=== PATIENT | female | born 1945 | race Caucasian/White ===

== ENCOUNTER 2019-09-27 12:07 | Outpatient (CLI) | payer MEDICARE, OTHER, SELFPAY ==
--- NOTE | 2019-09-27 12:14 | USCV_ITS ---
Carl Avalos Age: 73 Gender: F : 1945 Exam Date: 09/27/2019 12:20 Ordering Phys: Mio Henry MD Technologist: Judy Byrnes [place] [facility] [place]: BRUIT Risk Factors: Previous Vascular Surgery: Right Brachial BP: / Left Brachial BP: / Right Left Velocity (cm/s) Spectral Plaque Velocity (cm/s) Spectral Plaque Syst/Diast Broadening Syst/Diast Broadening 92.60/ 27.60 Prox CCA 74.30 / 23.30 79.40/ 19.80 Mid CCA 53.20 / 16.80 63.90/ 23.20 Distal CCA 43.40 / 13.80 71.60/ 26.90 Prox ICA 64.10 / 27.20 66.30/ 27.80 Mid ICA 86.90 / 35.80 69.80/ 22.40 Distal ICA 91.00 / 38.90 106.60 ECA 63.20 0.90 ICA/CCA 1.71 Antegrade Vertebral Antegrade 57.30/ 17.00 cm/s 52.20/ 15.30 cm/s Tri Subclavian Tri 77.00 66.50 FINDINGS Minimal plaques at the right bifurcation and internal carotid artery Moderate heterogeneous plaques at the left bifurcation and internal carotid artery intimal thickening in the common carotid arteries bilaterally Antegrade flow in the vertebral arteries bilaterally Normal Doppler flow velocities in the external and subclavian arteries bilaterally CONCLUSIONS Moderate heterogeneous plaques at the left bifurcation and internal carotid artery with velocity elevation consistent with 16-49% stenosis. Minimal plaques at the right bifurcation and internal carotid artery Intimal thickening in the common carotid arteries bilaterally. Dr Alayna Boyd MD [facility] (Electronically Signed) Final Date: 28 September 2019 09:23 S
== END 2019-09-27 12:08 | disposition home or self-care (01) ==
LOC: RAD 12:08
PROVIDERS: PCP Family Medicine; Visit Provider Family Medicine
DX: R09.89 Other specified symptoms and signs involving the circulatory and respiratory systems (principal)
CPT/HCPCS: 93880

== ENCOUNTER 2019-10-04 11:49 | Outpatient (CLI) | payer MEDICARE, OTHER, SELFPAY ==
--- NOTE | 2019-10-04 11:59 | MM_ITS ---
WS: [id number] BILATERAL DIGITAL SCREENING MAMMOGRAPHY WITH CAD CLINICAL INFORMATION: SCREENING HISTORY: Screening mammogram. No current complaints. COMPARISON: None. TECHNIQUE: Bilateral CC and MLO views. FINDINGS: The breasts are composed of heterogeneous fibroglandular density tissue, which can limit the detectio n of small underlying mass lesions. No suspicious mass, asymmetry, calcifications, or architectural d istortion. No evidence of malignancy. Punctate calcifications. Lucent centered calcifications. MM/[place] [id number] IMPRESSION: BI-RADS: 2-Benign FOLLOW UP: 1 Year Follow-up Recommend return to annual screening mammography.
== END 2019-10-04 11:50 | disposition home or self-care (01) ==
LOC: RADSHAW 11:58
PROVIDERS: PCP Family Medicine; Visit Provider Family Medicine
DX: Z12.31 Encounter for screening mammogram for malignant neoplasm of breast (principal)
CPT/HCPCS: 77067

== ENCOUNTER 2019-10-11 11:09 | Emergency (ER) | payer OTHER, SELFPAY ==
[2019-10-11 11:16] VITALS: BP 197/98; PULSE 75; RESP 18; TEMP 36.8; O2SAT 97; BMI 25.0
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
[2019-10-11 12:34] VITALS: BP 210/105; PULSE 70; RESP 16
--- NOTE | 2019-10-11 12:38 | PC.NURSE ---
1228 while at bedside pt states, i don't want the scan because my bp is so high . I then asked if she would rather have a chest xray and she confirmed that she would.
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
--- NOTE | 2019-10-11 12:50 | PC.NURSE ---
1245 informed MARCY Becerril of pt requesting xray instead of chest ct and that pt bp was 210/105. Jerrica verbalized understanding and stated that she would order a cxr.
[2019-10-11 13:46] VITALS: BP 160/98; PULSE 68; RESP 14; O2SAT 100
== END 2019-10-11 13:48 | disposition home or self-care (01) ==
PROVIDERS: Emergency Provider Physician Assistant; PCP Family Medicine
DX: S20.212A Contusion of left front wall of thorax, initial encounter (principal); V89.2XXA Person injured in unspecified motor-vehicle accident, traffic, initial encounter
CPT/HCPCS: 12345; 71045; 71046; 99282; 99283

== ENCOUNTER → 2019-11-09 13:20 | Outpatient (BNVA) | payer SELFPAY | PROVIDERS: PCP Family Medicine; Referring Provider Dermatology; Visit Provider Dermatology | DX: D23.30 Other benign neoplasm of skin of unspecified part of face (principal); L71.9 Rosacea, unspecified | CPT/HCPCS: 99203 ==

== ENCOUNTER → 2021-05-04 17:38 | Outpatient (BNVA) | payer MEDICARE, OTHER, SELFPAY | PROVIDERS: PCP Family Medicine; Visit Provider Nurse Practitioner | DX: Z20.822 Contact with and (suspected) exposure to COVID-19 (principal) | CPT/HCPCS: 87635 ==

== ENCOUNTER 2021-05-08 13:54 | Outpatient (CLI) | payer MEDICARE, OTHER, SELFPAY ==
--- NOTE | 2021-05-08 14:11 | USCV_ITS ---
Robbie Loireerebecca Age: 75 Gender: F : 1945 Exam Date: 05/08/2021 14:44 Ordering Phys: Bladimir Meneses M.D ([email or web address]) Technologist: CHINEDU Exam Location: [facility] – [place] Indication: Left Carotid Bruit Risk Factors: Previous Vascular Surgery: Right Brachial BP: / Left Brachial BP: / Right Left Velocity (cm/s) Spectral Plaque Velocity (cm/s) Spectral Plaque Syst/Diast Broadening Syst/Diast Broadening 63.90/ 15.40 Prox CCA 82.00 / 19.70 59.50/ 14.30 Mid CCA 73.50 / 19.70 81.60/ 19.80 Distal CCA 80.30 / 23.90 90.70/ 26.30 Prox ICA 100.30/ 38.60 107.80/38.10 Mid ICA 118.00/ 39.70 107.80/31.60 Distal ICA 98.10 / 37.50 140.70 ECA 91.40 1.32 ICA/CCA 1.44 Antegrade Vertebral Antegrade 58.20/ 11.20 cm/s 53.20/ 15.10 cm/s Tri Subclavian Tri 91.40 126.2 0 CONCLUSIONS Right ICA stenosis <50% at the upper end of the range. Mild atheromatous plaque right carotid bulb/ICA. Left ICA stenosis <50% at the upper end of the range. Moderate atheromatous plaque left carotid bulb/ICA. Normal antegrade Doppler flow noted in the right vertebral artery. Normal antegrade Doppler flow noted in the left vertebral artery. Etienne Galvez MD (Electronically Signed) Final Date: 10 May 2021 09:21 S
== END 2021-05-08 13:55 | disposition home or self-care (01) ==
LOC: RAD 13:57
PROVIDERS: PCP Family Medicine; Visit Provider Internal Medicine
DX: R09.89 Other specified symptoms and signs involving the circulatory and respiratory systems (principal); I65.23 Occlusion and stenosis of bilateral carotid arteries
CPT/HCPCS: 93880

== ENCOUNTER → 2021-07-19 09:51 | Outpatient (BNVA) | payer MEDICARE, OTHER, SELFPAY | PROVIDERS: PCP Family Medicine; Visit Provider Nurse Practitioner Family | DX: I11.0 Hypertensive heart disease with heart failure (principal); I50.30 Unspecified diastolic (congestive) heart failure; Z13.220 Encounter for screening for lipoid disorders; Z79.82 Long term (current) use of aspirin | CPT/HCPCS: 36415; 80053; 80061; 85025; 85610; 93005; 99214 ==

== ENCOUNTER 2021-10-29 19:43 | Emergency (ER) | payer MEDICARE, OTHER, SELFPAY ==
[2021-10-29 19:57] VITALS: BP 224/106; PULSE 93; RESP 17; TEMP 36.6; O2SAT 96; BMI 27.3
[2021-10-29 20:07] VITALS: RESP 16; TEMP 36.4; O2SAT 97
--- NOTE | 2021-10-29 20:28 | XRR_ITS ---
PROCEDURE INFORMATION: Exam: XR Chest Exam date and time: 10/29/2021 8:44 PM Age: 76 years old Clinical indication: Other: High BP; Additional info: HTN TECHNIQUE: Imaging protocol: Radiologic exam of the chest. Views: 1 view. COMPARISON: CR XR chest 1V portable [id number] 10/11/2019 1:04 PM FINDINGS: Lungs: The lung bases are suboptimally assessed due to technique however the upper lungs are clear of focal consolidation. Pleural spaces: Unremarkable. No pleural effusion. No pneumothorax. Heart/Mediastinum: Cardiac silhouette appears slightly prominent and probably magnified by technique but has slightly decreased in size. No obvious vascular congestion. Bones/joints: No acute osseous findings. Other findings: Single view was submitted. XR/XR chest 1V portable [id number] IMPRESSION: No acute findings. Suboptimal lung base assessment. Followup including lateral view may be obtained if clinically indicated.
--- NOTE | 2021-10-29 20:28 | ECG_ITS ---
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 Measurements Intervals Herman Rate: 82 P: 47 OR: 172 QRS: 18 QRSD: 98 T: 35 QT: 359 QTc: 422 Interpretive Statements SINUS RHYTHM LEFT ATRIAL ENLARGEMENT [-0.15mV P-WAVE IN V1/V2] No previous ECG available for comparison Electronically Signed On 10-30-2021 12:09:19 CDT by Sophie Solomon M.D. [email or web address] medical [email or web address] [email or web address]/[id number] f
[2021-10-29 20:43] LABS: Basophils # 0.1 10^3/uL (0.0-0.1); Basophils % 0.6 %; Eosinophils # 0.2 10^3/uL (0.0-0.8); Eosinophils % 2.3 %; Hematocrit 41.5 % (37.0-47.0); Hemoglobin 13.7 g/dL (11.5-15.3); Lymphocytes # 1.9 10^3/uL (0.8-4.8); Lymphocytes % 23.4 %; Mean Corpuscular Hemoglobin 30.1 pg (28.0-34.0); Mean Corpuscular Volume 91.2 fl (81-99); Mean Platelet Volume 9.8 fL (7.4-10.4); Monocytes # 0.6 10^3/uL (0.2-0.9); Monocytes % 7.3 %; Neutrophils # 5.45 10^3/uL (1.8-7.7); Neutrophils % 66.2 %; Nucleated Red Blood Cells % 0 %; Platelet Count 285 10^3/cmm (130-400); Red Blood Count 4.55 10^6/uL (4.1-5.3); White Blood Count 8.2 10^3/uL (4.0-10.0)
--- NOTE | 2021-10-29 20:43 | ED_ITS ---
HPI - General Adult General: Chief complaint: General Medical Stated complaint: High BP Time Seen by Provider: 10/29/21 20:28 History of Present Illness: 76-year-old female comes in today with complaints of elevated blood pressure. Patient feels like she cannot live like this due to her blood pressure being so high. Patient states that she is worried about having a stroke. 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 Patient has a history of hypertension with diastolic congestive heart failure. Patient at this time is taking clonidine, carvedilol, and losartan for her blood pressure. Patient was also prescribed hydrochlorothiazide but does not like to take it. Patient also was prescribed amlodipine but states that she has too many side effects from the medication. By what I can discern patient does not take these 2 medicines. Patient has a barrier to communication due to Romansh being her second language. Associated symptoms: Deny chest pain, dyspnea, nausea or vomiting Review of Systems General: Reports: 10 or more systems reviewed and unremarkable except in HPI and below Card: Denies: chest pain Resp: Denies: dyspnea GI: Denies: nausea or vomiting PFSH ED 2 PFSH: Medical History (Updated 10/29/21 @ 21:56 by VINICIUS May) Accelerated hypertension with diastolic congestive heart failure, NYHA class 3 Back skin lesion History of malignant melanoma HTN (hypertension) Left carotid bruit Murmur Surgical History H/O: hysterectomy History of appendectomy History of appendectomy History of hysterectomy Hx of tonsillectomy Family History Mother Stroke Social History Smoking and tobacco status: never smoked Alcohol intake: current Alcohol intake frequency: holidays/special occasions only Physical Exam Const: COMMON NORMALS: alert HENMT: COMMON NORMALS: normocephalic HEAD & SCALP: normocephalic Neck/C-Spine: COMMON NORMALS: full ROM Resp: COMMON NORMALS: normal respiratory effort and clear to auscultation bilaterally AUSCULTATION: clear to auscultation bilaterally Cardio: COMMON NORMALS: regular rate, regular rhythm, S1 normal heart sound present and S2 normal heart sound present RATE: regular rate RHYTHM: regular rhythm HEART SOUNDS: S1 normal heart sound present and S2 normal heart sound present Extremity: COMMON NORMALS: normal to inspection and no pedal edema Neuro: SENSORIUM/ORIENTATION: Yes alert Skin: COMMON NORMALS: no rashes or lesions noted GENERAL SKIN EXAM: no rashes or lesions noted Course Vital Signs: Vital signs: Vital Signs Temperature 97.6 F 10/29/21 22:00 Pulse Rate 62 10/29/21 22:00 Respiratory Rate 16 10/29/21 21:30 Blood Pressure 148/87 10/29/21 22:00 Pulse Oximetry 97 10/29/21 22:00 MDM - General Adult Medical Decision Making 76-year-old female comes in today for complaints of elevated blood pressure. On exam patient denies any chest pain or shortness of breath. Patient is just concerned about her blood pressure being so high and not being able to carry out her normal activities. On exam respirations are even lungs are clear to auscultation. Vital signs note a blood pressure of 224 systolic. Differential diagnosis includes CHF, uncontrolled hypertension, anxiety. Patient was monitored and her blood pressure came down to 148/87 without any medication intervention. Patient believes that her losartan is not working and would like to different medication. We will switch patient from losartan to valsartan 160 mg twice a day. This does have some better data regarding CHF and may be able to provide better control for her blood pressure. Patient was prescribed amlodipine and hydrochlorothiazide which she does not take. Patient does take carvedilol along with her losartan as scheduled. Laboratory values noted no abnormality with a CBC and CMP. Troponin was at baseline 10. EKG showed no ST elevation. BNP was 451. Chest x-ray had no fluid and patient had no swelling in the lower extremities. Feel the patient probably has just some uncontrolled blood pressure this may be related to the loss of her spouse and the anxiety as she has had since his demise. Another thought might be poor medication compliance. We will go ahead and start the valsartan 160 twice a day with explanation to hold the losartan. Patient reported understanding. Patient will continue with carvedilol and clonidine otherwise as needed. I recommended follow-up with primary care in 1 week. Lab Data : 10/29/21 20:37 10/29/21 20:37 Radiology Impressions Chest X-Ray 10/29/21 20:28 IMPRESSION: No acute findings. Suboptimal lung base assessment. Followup including lateral view may be obtained if clinically indicated. Laboratory Results WBC 8.2 10^3/uL (4.0-10.0) 10/29/21 20: RBC 4.55 10^6/uL (4.1-5.3) 10/29/21 20:37 Hgb 13.7 g/dL (11.5-15.3) 10/29/21 20: Hct 41.5 % (37.0-47.0) 10/29/21 20: MCV 91.2 fl (81-99) 10/29/21 20: MCH 30.1 pg (28.0-34.0) 10/29/21 20: MCHC 33.0 g/dL (30.0-36.0) 10/29/21 20: RDW 12.0 % (12.1-15.1) L 10/29/21 20:37 Plt Count 285 10^3/cmm (130-400) 10/29/21 20:37 MPV 9.8 fL (7.4-10.4) 10/29/21 20:37 Neut % (Auto) 66.2 % 10/29/21 20:37 Lymph % (Auto) 23.4 % 10/29/21 20:37 Davidson % (Auto) 7.3 % 10/29/21 20:37 Eos % (Auto) 2.3 % 10/29/21 20:37 Baso % (Auto) 0.6 % 10/29/21 20:37 Neut # (Auto) 5.45 10^3/uL (1.8-7.7) 10/29/21 20:37 Lymph # (Auto) 1.9 10^3/uL (0.8-4.8) 10/29/21 20:37 Davidson # (Auto) 0.6 10^3/uL (0.2-0.9) 10/29/21 20:37 Eos # (Auto) 0.2 10^3/uL (0.0-0.8) 10/29/21 20:37 Baso # (Auto) 0.1 10^3/uL (0.0-0.1) 10/29/21 20:37 Nucleated RBC % (auto) 0 % 10/29/21 20:37 Nucleated RBCs # 0.0 /100WBC 10/29/21 20:37 Sodium 141 mmol/L (136-145) 10/29/21 20:37 Potassium 4.2 mmol/L (3.5-5.1) 10/29/21 20:37 Chloride 105 mmol/L (98-107) 10/29/21 20:37 Carbon Dioxide 24 mmol/L (22-29) 10/29/21 20:37 Anion Gap 16.2 (5-19) 10/29/21 20:37 BUN 13 mg/dL (8-23) 10/29/21 20:37 Creatinine 0.6 mg/dL (0.5-0.9) 10/29/21 20:37 GFR Calculation Not Reportable 10/29/21 20:37 Glucose 94 mg/dL (65-115) 10/29/21 20:37 Calculated Osmolality 292 mOsm/kg (285-295) 10/29/21 20:37 Calcium 9.5 mg/dL (8.5-10.5) 10/29/21 20:37 Total Bilirubin 0.5 mg/dL (0.15-1.2) 10/29/21 20:37 AST 16 U/L (0-32) 10/29/21 20:37 ALT 13 U/L (0-33) 10/29/21 20:37 Alkaline Phosphatase 55 IU/L (35-105) 10/29/21 20:37 Troponin T Baseline 10 ng/L (0-10) 10/29/21 20:37 NT-Pro-B Natriuret Pep 451 pg/mL (0-450) H 10/29/21 20:37 Total Protein 6.9 g/dL (6.6-8.7) 10/29/21 20:37 Albumin 4.7 g/dL (3.5-5.2) 10/29/21 20:37 Globulin 2.2 g/dL (1.3-4.6) 10/29/21 20:37 Discharge Plan Discharge Patient Disposition: Home Clinical Impression: Accelerated hypertension with diastolic congestive heart failure, NYHA class 3 Condition: Stable Prescriptions: New valsartan 160 mg tablet 160 mg PO BID Qty: 60 0RF Held losartan 100 mg tablet 100 mg PO DAILY Qty: 90 3RF Hold Instructions: Resume on 11/29/21. until while taking valsartan trial No Action aspirin [Adult Low Dose Aspirin] 81 mg tablet,delayed release (DR/EC) 81 mg PO DAILY 0RF amlodipine 10 mg tablet 10 mg PO DAILY Qty: 90 3RF carvedilol 3.125 mg tablet 12.5 mg PO BID Qty: 720 3RF Rx Instructions: must administer with a meal/food brimonidine 0.33 % gel 1 applic topical DAILY 0RF mupirocin 2 % ointment 1 applic topical BID Qty: 22 3RF Rx Instructions: Apply to affected area until healed omega-3 fatty acids 1,000 mg capsule 2,000 mg PO DAILY Qty: 180 4RF hydrochlorothiazide 12.5 mg tablet 12.5 mg PO DAILY Qty: 90 3RF Discharge Orders: Discharge ED (Routine); Ordered 10/29/21 Ordered By: Jerrod Johnson Referrals: Mio Henry MD [Primary Care Provider] - Discharge Diet: Usual diet Discharge Activity: Increase activity as tolerated Patient Instructions: DASH Eating Plan (ED), Hypertension (ED) Activity Restrictions/Additional Instructions: Hold losartan and take valsartan instead. Follow-up with primary care or roving sizer for further instructions regarding other medications. Return to ER for worsening symptoms or new concerns. Coding Level of Care Code ED Telemarketing Representative for Keisha Shin Exam Detailed
[2021-10-29 21:07] VITALS: RESP 16; TEMP 36.4; O2SAT 96
[2021-10-29 21:07] LABS: Troponin(5th) Baseline 10 ng/L (0-10)
[2021-10-29 21:17] LABS: Alanine Aminotransferase 13 U/L (0-33); Albumin Level 4.7 g/dL (3.5-5.2); Alkaline Phosphatase 55 IU/L (35-105); Anion Gap 16.2 (5-19); Aspartate Amino Transferase 16 U/L (0-32); Blood Urea Nitrogen 13 mg/dL (8-23); Calcium 9.5 mg/dL (8.5-10.5); Carbon Dioxide 24 mmol/L (22-29); Chloride 105 mmol/L (98-107); Globulin 2.2 g/dL (1.3-4.6); Glucose 94 mg/dL (65-115); NT Pro B Type Natriuretic Pept 451 pg/mL (0-450); Osmolality Calculated 292 mOsm/kg (285-295); Potassium 4.2 mmol/L (3.5-5.1); Sodium 141 mmol/L (136-145); Total Bilirubin 0.5 mg/dL (0.15-1.2); Total Protein 6.9 g/dL (6.6-8.7)
[2021-10-29 21:30] VITALS: BP 158/89; PULSE 67; RESP 16; O2SAT 95
--- NOTE | 2021-10-29 21:36 | PC.NURSE ---
BP 158/89, medication not given
[2021-10-29 22:00] VITALS: BP 148/87; PULSE 62; TEMP 36.4; O2SAT 97
--- NOTE | 2021-10-29 22:28 | ECG_ITS ---
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 Measurements Intervals Banning Rate: 67 P: 15 TX: 166 QRS: 32 QRSD: 109 T: 26 QT: 404 QTc: 427 Interpretive Statements SINUS RHYTHM LEFT ATRIAL ENLARGEMENT [-0.15mV P WAVE IN V1/V2] Compared to ECG 10/29/2021 20:04:03 No significant changes Electronically Signed On 10-30-2021 12:10:28 CDT by Sophie Solomon M.D. [email or web address].[employer]/store/[id number] f
== END 2021-10-29 22:31 | disposition home or self-care (01) ==
PROVIDERS: Emergency Provider Nurse Practitioner Family; PCP Family Medicine
DX: I11.0 Hypertensive heart disease with heart failure (principal); I50.30 Unspecified diastolic (congestive) heart failure; Z79.82 Long term (current) use of aspirin
CPT/HCPCS: 71045; 80053; 83880; 84484; 85025; 93005; 99285

== ENCOUNTER → 2021-10-31 11:12 | Outpatient (BNVA) | payer MEDICARE, OTHER, SELFPAY | PROVIDERS: PCP Family Medicine; Visit Provider Internal Medicine Cardiovascular Disease | DX: I11.0 Hypertensive heart disease with heart failure (principal); I50.30 Unspecified diastolic (congestive) heart failure | CPT/HCPCS: 99213; 99214 ==

== ENCOUNTER → 2021-11-14 10:05 | Outpatient (BNVA) | payer MEDICARE, OTHER, SELFPAY | PROVIDERS: PCP Family Medicine; Visit Provider Nurse Practitioner Family | DX: I11.0 Hypertensive heart disease with heart failure (principal); I50.32 Chronic diastolic (congestive) heart failure | CPT/HCPCS: 99213 ==

== ENCOUNTER → 2021-12-19 09:37 | Outpatient (BNVA) | payer MEDICARE, OTHER, SELFPAY | PROVIDERS: PCP Family Medicine; Visit Provider Family Medicine | DX: Z51.81 Encounter for therapeutic drug level monitoring (principal); I11.0 Hypertensive heart disease with heart failure; I50.30 Unspecified diastolic (congestive) heart failure; I10 Essential (primary) hypertension; Z13.220 Encounter for screening for lipoid disorders; R60.9 Edema, unspecified | CPT/HCPCS: 80053; 80061; 82384; 82533; 85025 ==

== ENCOUNTER → 2022-01-22 13:52 | Outpatient (BNVA) | payer MEDICARE, OTHER, SELFPAY | PROVIDERS: PCP Family Medicine; Visit Provider Internal Medicine | DX: I11.0 Hypertensive heart disease with heart failure (principal); I50.30 Unspecified diastolic (congestive) heart failure | CPT/HCPCS: 99213; 99214 ==

== ENCOUNTER → 2022-03-05 15:04 | Outpatient (BNVA) | payer MEDICARE, OTHER, SELFPAY | PROVIDERS: PCP Family Medicine; Visit Provider Internal Medicine | DX: I11.0 Hypertensive heart disease with heart failure (principal); I50.30 Unspecified diastolic (congestive) heart failure | CPT/HCPCS: 99214 ==

== ENCOUNTER → 2022-07-10 15:43 | Outpatient (BNVA) | payer MEDICARE, OTHER, SELFPAY | PROVIDERS: PCP Family Medicine; Visit Provider Internal Medicine | DX: I11.0 Hypertensive heart disease with heart failure (principal); I50.30 Unspecified diastolic (congestive) heart failure | CPT/HCPCS: 99214 ==